=== PATIENT | female | born 1975 | race Hispanic/Latino ===

== ENCOUNTER → 2024-09-07 | Day surgery (SDC) | payer BC ==
[~2024-09-07] MED LIST: ALENDRONATE SOD70 MG PO; FENOFIBRATE134 MG PO; FENTANYL CITRATE/PF 100MCG/2 ML INJ ONE; HYOSCYAMINE SULFATE 0.5 MG/ML INJ ONE; ICOSAPENT ETHYL1 GM PO; MIDAZOLAM HCL 2 MG/2 ML VIAL ONE; PROPOFOL IV EMULSION 10 MG/ML 20 ML VIAL ONE
[2024-09-07] MEDS: LACTATED RINGER'S 1,000 ML BAG IV ONE (08:27)
[2024-09-07 10:20] VITALS: BP 116/72; PULSE 92; RESP 16; O2SAT 99
== END | disposition home or self-care (01) ==
LOC: OR 07:10
PROVIDERS: ATTEND Internal Medicine Gastroenterology
DX: Z12.11 Encounter for screening for malignant neoplasm of colon (principal); K64.8 Other hemorrhoids; C53.9 Malignant neoplasm of cervix uteri, unspecified; Z79.899 Other long term (current) drug therapy
CPT/HCPCS: 45378; J1980; J2250; J2704; J3010; J7121